=== PATIENT | male | born 1965 | race Caucasian/White ===

== ENCOUNTER 2018-10-21 06:01 | Day surgery (SDC) | END 2018-10-21 11:30 | disposition home or self-care (01) ==

== ENCOUNTER 2019-01-03 06:44 | Day surgery (SDC) | payer OTHER ==
[2019-01-02 11:09] VITALS: Ht 160 cm; Wt 84.1 kg
[~2019-01-03] VITALS: Ht 160 cm; Wt 84.1 kg
[2019-01-03] VITALS (17 sets, daily range): BP systolic 90–102; BP diastolic 56–69; PULSE 90–112; RESP 13–53
[~2019-01-03 06:44] MED LIST: CLARITIN; MAGNESIUM; MULTIVITAMIN
[2019-01-03] MEDS ORDERED: LACTATED RINGER'S 1,000 ML IV SCH (07:00)
[2019-01-03] MEDS ORDERED: SOD CHLORIDE 0.9% 1,000 ML IV SCH (07:00)
--- NOTE | 2019-01-03 07:33 | PREAC ---
Date/Time of Note Date/Time of Note DATE: 01/03/19 TIME: 07:32 Anesthesia Eval and Record Evaluation Time Pre-Procedure Interview DATE: 01/03/19 TIME: 07:32 Age 53 Sex male NPO: 8 hrs Preoperative diagnosis HPV Planned procedure LEEP procedure Past Medical History Past Medical History: Includes Pulm: Sleep Apnea, Home CPAP, Asthma GI: Obesity (BMI 32.8) Surgery & Anesthesia Issues No known issue Meds Anticoagulation: No Beta Lee within 24 hr: No Reason Beta Lee not given: Pt. not on B-Lee Reported Medications Fluticasone Propionate* (Fluticasone Propionate* Nasal) 50 Mcg/[place] - 16 Gm [place].susp, 1 SPRAY NASAL DAILY, #1 BOTTLE TO EACH NOSTRIL 01/03/19 Guaifenesin (Guaifenesin) 600 Mg Tablet.sa, 600 MG PO BID, TAB 01/03/19 Cetirizine Hcl* (Zyrtec*) 10 Mg Capsule, 10 MG PO DAILY, TAB 01/03/19 Fluticasone/Vilanterol (Breo Ellipta 200-25 Mcg INH) 1 Each Blst.w.dev, 1 PUFF INHALATION DAILY, #1 INHALER 01/03/19 Albuterol Sulfate* (Ventolin HFA*) 18 Gm Hfa.aer.ad, 2 PUFF INHALATION Q4H, #1 INHALER 01/03/19 Losartan Potassium* (Losartan Potassium*) 50 Mg Tablet, 50 MG PO DAILY, TAB 01/03/19 Discontinued Reported Medications [Claritin] No Conflict Check 10/21/18 [Multivitamin] No Conflict Check 10/21/18 [Magnesium] No Conflict Check 10/21/18 Current Medications Lactated Ringer's 1,000 ml @ 25 mls/hr Q24H IV ; Start 01/03/19 at 07:00 Sodium Chloride 1,000 ml @ 25 mls/hr Q24H IV ; Start 01/03/19 at 07:00 Meds reviewed: Yes Allergies Coded Allergies: Phelps And Derivatives (Verified Allergy, Mild, 01/03/19) INDIGESTION, VOMITING garlic (Verified Allergy, Mild, 01/03/19) INDIGESTION, VOMITING onion (Verified Allergy, Mild, 01/03/19) INDIGESTION, VOMITING pepper (genus Capsicum) (Verified Allergy, Mild, 01/03/19) INDIGESTION, VOMITING tomato (Verified Allergy, Mild, 01/03/19) INDIGESTION, VOMITING Allergies Reviewed: Yes Labs/Studies Labs Reviewed: Reviewed by anesthesiologist Result Diagram: 01/03/19 0800 test: Negative Pre-procedure Exam Airway: Adequate mouth opening, Adequate thyromental dist Mallampati: Mallampati II Teeth: Normal Lung: Normal Heart: Normal ASA Physical Status ASA physical status: 2 Emergency: None Planned Anesthetic General/MAC: LMA Planned Pain Management Parenteral pain med, Local by surgeon Pre-operative Attestations PT BELONGS TO TEMPLE AND REQUESTS THE FOLLOWING NOT TO BE GIVEN TO HER: DO NOT GIVE TRIAZOLAM, VERSED, KETAMINE, DEMEROL, ATIVAN. PROPOFOL IS OK PER PATIENT. Prior to commencing anesthesia and surgery, the patient was re-evaluated, there was verification of: *The patient's identity *The results of appropriate recent lab work and preoperative vital signs *The above evaluation not changing prior to induction *Anesthetic plan, risk benefits, alternative and complications discussed with patient/family; questions answered; patient/family understands, accepts and wishes to proceed. BAKARI PIERSON Jan 03, 2019 07:33
[2019-01-03] MEDS ORDERED: FLUT1BLS INHALATION (07:35)
[2019-01-03] MEDS ORDERED: ALBU18HF INHALATION (07:35)
[2019-01-03] MEDS ORDERED: LOSA50TA14 PO (07:35)
[2019-01-03] MEDS ORDERED: GUAI600T23 PO (07:36)
[2019-01-03] MEDS ORDERED: CETI10CA PO (07:36)
[2019-01-03] MEDS ORDERED: FLUT16SP17 NASAL (07:37)
[2019-01-03] MEDS ORDERED: MIDAZOLAM 1 MG/ML 2 ML INJ ONE (08:38)
[2019-01-03] MEDS ORDERED: PROPOFOL 20 ML ONE (08:38)
[2019-01-03] MEDS ORDERED: LIDOCAINE 2% (SDV) 5 ML INJ ONE (08:38)
[2019-01-03] MEDS ORDERED: FENTAnyl 50 MCG/ML VIAL ONE (08:39)
[2019-01-03] MEDS ORDERED: LIDOCAINE 1%/EPI (1:100,000) (MDV) 20 ML ONE (09:06)
[2019-01-03] MEDS ORDERED: DEXAMETHASONE 4 MG/ML 5 ML INJ ONE (09:26)
[2019-01-03] MEDS ORDERED: ONDANSETRON 4 MG INJ ONE (09:26)
[2019-01-03] MEDS ORDERED: FAMOTIDINE 20 MG INJ ONE (09:26)
[2019-01-03] MEDS ORDERED: FERRIC SUBSULFATE 8 GM VIAL TOP SCH (09:30)
[2019-01-03] MEDS ORDERED: OXYCODONE/ACETAMINOPHEN (5/325) TAB PO PRN ×2 (09:30)
[2019-01-03] MEDS ORDERED: ONDANSETRON 4 MG INJ IV PRN (09:30)
[2019-01-03] MEDS ORDERED: ALBUTEROL 0.083% (NEB) 2.5 MG/3 ML AMP HHN PRN (09:30)
[2019-01-03] MEDS ORDERED: FENTAnyl 50 MCG/ML VIAL IV PRN ×2 (09:30)
[2019-01-03] MEDS ORDERED: EPHEDrine 25 MG/5 ML SYG ONE (09:51)
--- NOTE | 2019-01-03 10:37 | SIPON ---
Date/Time of Note Date/Time of Note DATE: 01/03/19 TIME: 10:36 Operative Report Preoperative Diagnosis Cervical dysplasia Postoperative Diagnosis Same Operation/Procedure Performed LEEP Surgeon Terence Rapp MD emergency room physician assistant None Anesthesia: general Estimated blood loss: minimal Transfusion Required none Specimen Ectocervix, ECC Grafts/Implants none Complications none TERENCE RAPP MD Jan 03, 2019 10:37
--- NOTE | 2019-01-03 10:42 | PAC ---
Date/Time of Note Date/Time of Note DATE: 01/03/19 TIME: 10:42 Post-Anesthesia Notes Post-Anesthesia Note Last documented vital signs PACU vitals BP 93/60, HR 112 spO2 99%, rr 16 TEMP 98.8 Activity: WNL Respiratory function: WNL Cardiovascular function: WNL Mental status: Baseline Pain reasonably controlled: Yes Hydration appropriate: Yes Nausea/Vomiting absent: Yes BAKARI PIERSON Jan 03, 2019 10:42
[2019-01-03] MEDS: FENTAnyl 50 MCG/ML VIAL IV PRN ×3 (10:44→11:07)
--- NOTE | 2019-01-03 11:16 | PREOPHP ---
DATE OF ADMISSION: 01/03/2019 HISTORY OF PRESENT ILLNESS: A 53-year-old female, 0, para 0, last menstrual period 2013, wit h history of cervical dysplasia. PAST MEDICAL HISTORY: Hypertension and asthma. PAST SURGICAL HISTORY: Bunion surgery, appendectomy and tonsillectomy. ALLERGIES: No known allergies. FAMILY HISTORY: Diabetes and hypertension. PHYSICAL EXAMINATION: VITAL SIGNS: The patient is afebrile. Vital signs stable. HEAD, NECK AND CHEST: Within normal limits. ABDOMEN: Soft, nontender, nondistended. PELVIC: Normal. EXTREMITIES: Within normal limits. NEUROLOGIC: Within normal limits. IMPRESSION: Cervical dysplasia. PLAN: Loop electrosurgical excision procedure. Risks, benefits, alternatives to the procedure were explained to the patient. Patient said she understood and gave informed consent for the procedure. Dictated By: TREENCE GRANT/LUIS Conf#: [id number] DID#: [id number]
--- NOTE | 2019-01-03 12:55 | OPR ---
DATE OF OPERATION: 01/03/2019 PREOPERATIVE DIAGNOSIS: Cervical dysplasia. POSTOPERATIVE DIAGNOSIS: Cervical dysplasia. OPERATION PERFORMED: Loop electrosurgical excision procedure. SURGEON: Terence Jacobson MD ANESTHESIA: General. ANESTHESIOLOGIST: Karolyn Kelsey MD DESCRIPTION OF PROCEDURE: The patient was taken to the operating room and placed on the operating ta ble in supine position. After adequate general anesthesia was given, the patient was placed in dorsa l lithotomy position. The area was prepared and draped in the usual sterile fashion. Speculum was p laced inside the vagina. A 1% solution of lidocaine and epinephrine was injected into the cervix. U sing a semicircular loop, a portion of the ectocervix was excised and sent to pathology. Next using Kevorkian curette, endocervical curettage was performed and specimen was obtained and was sent to [facility]. Using ball tip Bovie, small bleeders were cauterized. Surgicel soaked in Monsel solution wa s applied to the site. All the instruments were removed. Adequate hemostasis was assured. The jennifer ent tolerated the procedure well. The patient was awakened from anesthesia and transferred to [facility] [place] in stable condition. Estimated blood loss was minimal. All counts were correct. Dictated By: TERENCE GRANT/NTS Conf#: [id number] DID#: [id number]
== END 2019-01-03 12:25 | disposition home or self-care (01) ==
LOC: EDSEX 06:44 → SDS 06:44
PROVIDERS: ATTEND Obstetrics & Gynecology
DX: N87.9 Dysplasia of cervix uteri, unspecified (principal); J45.909 Unspecified asthma, uncomplicated; E66.9 Obesity, unspecified; Z68.32 Body mass index [BMI] 32.0-32.9, adult
CPT/HCPCS: 57522; 71045; 85025; 86850; 86900; 86901; 88305; J1100; J2405; J3010; Z7512; Z7610; J2250